=== PATIENT | male | born 1955 | race Caucasian/White ===

== ENCOUNTER 2020-02-16 15:17 | Inpatient (IN) | payer OTHER ==
--- NOTE | 2020-02-16 16:09 | ED ---
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 The patient rates the pain 8/10 in severity. Symptoms aggravated by nothing. Symptoms alleviated by nothing. Patient reports having a spinal fusion 1 month ago. He denies any fever, chills, nausea, or vomiting. He reports taking Hydrocodone. Medication list reviewed. Allergy list reviewed. Home Medications Medication Instructions Recorded Confirmed Type Gabapentin 1,500 mg PO BID 04/20/14 03/31/15 History Tamsulosin HCl 1 tab PO TID 04/20/14 03/31/15 History Meloxicam [Mobic] 1 tab PO BID 03/30/15 03/31/15 History Methocarbamol 750 mg PO BID 03/30/15 03/31/15 History Morphine Sulfate [Delphine] 2 tab PO QID 03/30/15 03/31/15 History Verapamil HCl [Calan Sr] 240 mg PO QPM 03/30/15 03/31/15 History - History Of Current Complaint Chief Complaint: EDRashSkinAbscess Stated Complaint: SURGICAL INCISION SITE ISSUE PER PT Time Seen by Provider: 02/16/20 16:01 Hx Obtained From: Patient Onset/Duration: Lasting Hours Severity: Moderate Pain Intensity: 8 Pain Scale Used: 0-10 Numeric Procedure Type: Spinal fusion - Allergies/Home Medications Allergies/Adverse Reactions: Allergies Allergy/AdvReac Type Severity Reaction Status Date / Time meperidine [From Demerol] Allergy Agitation Verified 02/16/20 15:44 MILK Allergy GI PROBLEMS Uncoded 02/16/20 15:44 WHEAT Allergy GI PROBLEMS Uncoded 02/16/20 15:44 Home Medications: Home Medications Docusate CAP* [Colace Cap*] 100 mg PO TID 02/16/20 [History Confirmed 02/16/20] Gabapentin CAP(*) [Neurontin 300 CAP(*)] 1,200 mg PO TID 02/16/20 [History Confirmed 02/16/20] HydroCODONE/Acetamin 10/325 NF [[place] 10/325 (NF)] 1 tab PO QID PRN 02/16/20 [ History Confirmed 02/16/20] Hydrochlorothiazide TAB* [Hydrodiuril TAB*] 25 mg PO DAILY 02/16/20 [History Confirmed 02/16/20] Lisinopril TAB* [Prinivil TAB*] 40 mg PO DAILY 02/16/20 [History Confirmed 02/15] Verapamil TAB* [Calan TAB*] 240 mg PO DAILY 02/16/20 [History Confirmed 02/16/20 ] PMH/Surg Hx/FS Hx/Imm Hx Endocrine/Hematology History: Denies: Hx Diabetes Cardiovascular History: Reports: Hx Hypertension Denies: Hx Pacemaker/ICD GI History: Reports: Hx Irritable Bowel History: Reports: Hx Kidney Stones - HX OF, Other Problems/Disorders - BENIGN PROSTATIC HYPERTROPHY Musculoskeletal History: Reports: Hx Arthritis Sensory History: Reports: Hx Cataracts, Hx Contacts or Glasses - GLASSES, Hx Hearing Aid - BILATERAL Opthamlomology History: Reports: Hx Cataracts, Hx Contacts or Glasses - GLASSES Neurological History: Denies: Hx Headaches Psychiatric History: Denies: Hx Panic Disorder - Surgical History Surgery Procedure, Year, and Place: 1973 L4/5 S1 LAMINECTOMY, [facility]. 1979 FAILED LUMBAR FUSION, [facility] 1990 L4/5 S1 FUSION WITH PLATES AND SCREW, [facility]. 2005 CERVICAL SPINE FUSION, [facility] Hx Anesthesia Reactions: No Infectious Disease History: No Infectious Disease History: Denies: Traveled Outside the [place] in Last 30 Days - Family History Known Family History: Positive: Cardiac Disease - [place]-father, Hypertension - Social History Alcohol Use: None Substance Use Type: Reports: Marijuana Substance Use Comment - Amount & Last Used: FOR BACK PAIN LAST TIME 03/30/15 MORNING WILL TRY NOT TO USE ANYMORE TODAY Hx Tobacco Use: No Smoking Status (MU): Never Smoked Tobacco Review of Systems Negative: Fever, Chills Negative: Vomiting, Nausea Positive: Other - Pain at surgical incision Positive: Other - Open surgical incision All Other Systems Reviewed And Are Negative: Yes Physical Exam - Summary Physical Exam Summary: Constitutional: Well-developed, Well-nourished, Alert. (-) Distressed Skin: Warm, surgical midline incision is dehisced, could see the soft tissue structures through the incision. HENT: Normocephalic; Atraumatic Eyes: Conjunctiva normal Neck: Musculoskeletal ROM normal neck. (-) JVD, (-) Stridor, (-) Tracheal deviation Cardio: Rhythm regular, rate normal, Heart sounds normal; Intact distal pulses; Radial pulses are 2+ and symmetric. (-) Murmur Pulmonary/Chest wall: Effort normal. (-) Respiratory distress, (-) Wheezes, (-) Rales Abd: Soft, (-) tenderness, (-) Distension, (-) Guarding, (-) Rebound Musculoskeletal: (-) Edema Lymph: (-) Cervical adenopathy Neuro: Alert, Oriented x3 Psych: Mood and affect Normal Triage Information Reviewed: Yes Vital Signs On Initial Exam: Initial Vitals Temp Pulse Resp BP Pulse Ox 97.2 F 94 18 155/90 97 02/16/20 15:18 02/16/20 15:18 02/16/20 15:18 02/16/20 15:18 02/16/20 15:18 Vital Signs Reviewed: Yes Procedures - Sedation Patient Received Moderate/Deep Sedation with Procedure: No Diagnostics - Vital Signs Vital Signs Temp Pulse Resp BP Pulse Ox 02/16/20 15:18 97.2 F 94 18 155/90 97 - Laboratory Result Diagrams: 02/16/20 16:27 02/16/20 16:27 Lab Statement: Any lab studies that have been ordered have been reviewed, and results considered in the medical decision making process. Re-Evaluation - Re-Evaluation First Eval Re-Evaluation Time: 16:10 Comment: Discussed with Dr. Prasad who recommends trying to coordinate with Dr. Lopez, but will send him a picture of the patient's wound. Course/Dx - Course Course Of Treatment: Patient is here with dehiscence of the surgical wound. Patient's neurosurgeon was contacted at [facility] thinks he needs to go to the operating room for washout. Neurosurgery here saw the patient and will take to the operating room for washout. Patient was given vancomycin empirically. Patient is admitted to the hospitalist service - Clinical Impression Provider Diagnoses: Post-operative complication, Wound dehiscence - Physician Notifications Discussed Care Of Patient With: Lalo Lopez Time Discussed With Above Provider: 16:20 Instructed by Provider To: Other - Dr. Lopez will admit the patient. [17:33 ] Dr. Tate accepts the patient for admission. Discharge ED - Sign-Out/Discharge Documenting (check all that apply): Patient Departure - Discharge Plan Condition: Stable Disposition: ADMITTED TO [facility] - Billing Disposition and Condition Condition: STABLE Disposition: [facility] - Attestation Statements Document Initiated by Suzanibrosario: Yes Documenting Scribe: Valerie Rodriguez Provider For Whom Lopez is Documenting (Include Credential): Selvin Martinez MD Scribe Attestation: Valerie Hackett, scribed for Selvin Martinez MD on 02/16/20 at 2113. Scribe Documentation Reviewed: Yes Provider Attestation: The documentation as recorded by the Valerie arnett accurately reflects the service I personally performed and the decisions made by me, Selvin Martinez MD Status of Scribe Document: Viewed
[2020-02-16 16:52] LABS: ABS Basophils 0.1 10^3/ul (0-0.2); ABS Eosinophils 0.3 10^3/ul (0-0.6); ABS Lymphocytes 1.1 10^3/ul (1.0-4.8); ABS Monocytes 0.5 10^3/ul (0-0.8); ABS Neutrophils 2.9 10^3/ul (1.5-7.7); Activated Partial Thrombo Time 31.1 seconds (26.0-38.0); Hematocrit 34 % (42-52); Hemoglobin 12.8 g/dL (14.0-18.0); Lymphocyte % 22.3 %; Mean Corpuscular HGB Conc 37 g/dL (31-36); Mean Corpuscular Hemoglobin 33 pg (27-31); Mean Corpuscular Volume 89 fL (80-94); Mean Platelet Volume 6.2 fL (7.4-10.4); Platelet Count 304 10^3/uL (150-450); Red Blood Count 3.87 10^6 /uL (4.18-5.48); Red Cell Distribution Width 12 % (10-15); White Blood Count 4.8 10^3/uL (3.5-10.8)
[2020-02-16 16:54] LABS: Albumin 3.7 g/dL (3.2-5.2); Albumin/Globulin Ratio 1.5 (1-3); BUN/Creatinine Ratio 11.2 (8-20); C Reactive Protein 10.34 mg/L (<8.01); Calcium 8.9 mg/dL (8.6-10.3); EGFR African American 92.9 (>60); EGFR Non-African American 76.8 (>60); Globulin 2.5 g/dL (2-4); Total Bilirubin 0.3 mg/dL (0.2-1.0); Total Protein 6.2 g/dL (6.4-8.9)
[2020-02-16] MEDS ORDERED: NS 0.9% 1000 ML** 1,000 ML IV ONE (17:16)
[2020-02-16] MEDS ORDERED: Vancomycin(*) 1,500 MG in NS 0.9% 250 ML* 250 ML IVPB ONE (17:16)
[2020-02-16] MEDS ORDERED: Morphine INJ* 2 MG/ML 1 ML SYRINGE (TWO MG - NEW SYRINGE VERSION) IV PRN (18:15)
[2020-02-16] MEDS ORDERED: Acetaminophen TAB* 325 MG PO PRN ×2 (18:15→21:24)
[2020-02-16] MEDS ORDERED: NS 0.9% 1000 ML** 1,000 ML IV SCH (18:15)
[2020-02-16] MEDS ORDERED: oxyCODONE/Acetamin 5/325 MG* TAB PO PRN (18:15)
[2020-02-16] MEDS ORDERED: Magnesium Hydroxide LIQ* 30 ML UDC PO PRN (18:19)
[2020-02-16] MEDS ORDERED: Docusate CAP* 100 MG PO PRN (18:19)
[2020-02-16] MEDS ORDERED: Senna TAB 8.6 mg* TAB PO PRN (18:19)
[2020-02-16] MEDS ORDERED: Polyethylene Glycol 3350* 17 GM PACKET PO PRN (18:19)
[2020-02-16] MEDS ORDERED: Bacitracin INJECTION* 50,000 UNITS ONE ×2 (18:45→19:38)
[2020-02-16] MEDS ORDERED: Vancomycin per Pharmacy* NOTE FOLLOW UP SCH (19:00)
[2020-02-16] MEDS ORDERED: Naloxone* 0.4 MG/ML 1 ML VIAL IV PRN (19:02)
[2020-02-16] MEDS ORDERED: Midazolam* 1 MG/ML 2 ML VIAL (2 MG) ONE (19:17)
[2020-02-16] MEDS ORDERED: fentaNYL* 50 MCG/ML 2 ML VIAL (100 MCG VIAL) ONE ×2 (19:17→20:44)
[2020-02-16] MEDS ORDERED: Rocuronium* 10 MG/ML VIAL ONE ×2 (19:31→20:21)
[2020-02-16] MEDS ORDERED: Dexamethasone IV* 4 MG/ML 1 ML (4 MG) ONE (19:40)
[2020-02-16] MEDS ORDERED: Propofol* 10 MG/ML 20 ML BTL ONE (19:40)
[2020-02-16] MEDS ORDERED: Etomidate* 2 MG/ML 10 ML VIAL ONE (19:40)
[2020-02-16] MEDS ORDERED: Lidocaine 2% PF * 5 ML VIAL ONE (19:40)
[2020-02-16] MEDS ORDERED: Succinylcholine* 20 MG/ML 10 ML VIAL ONE (19:40)
[2020-02-16] MEDS ORDERED: Sugammadex * 200 MG/2 ML VIAL IV PUSH ONE (20:29)
[2020-02-16] MEDS ORDERED: Ondansetron INJ* 2 MG/ML VIAL ONE (20:29)
--- NOTE | 2020-02-16 20:51 | HP ---
CC: LEW Gomez, [facility] [place]; Dr. Gabriel Mcdonnell at [facility]; Dr. Sean Tate* HISTORY AND PHYSICAL: DATE OF ADMISSION: 02/16/20 PRIMARY CARE PROVIDER: LEW Gomez, [place]. NEUROSURGEON: Dr. Gabriel Mcdonnell, [facility]. ATTENDING PHYSICIAN: Dr. Sean Tate* (dictated by LEW Luz ). CHIEF COMPLAINT: Wound dehiscence. HISTORY OF PRESENT ILLNESS: Mr. Sinha is a 64-year-old male with a past medical history of hypertension as well as cervical and lumbar radiculopathy with a history of multiple cervical and lumbar surgeries, most recently on 01/19 done at [facility] by Dr. Mcdonnell. He presented to the ER today after his noticed that his wound had dehisced. He reports that in the late morning he was reaching for an object and felt a "clunk" in his neck, after this he felt sudden relief. He went about his day without concern. It is important to note that he wears a MJ collar at all times except when sleeping. Later in the evening, his was helping him ice his neck, his collar was removed and she noticed that the wound had opened up; this prompted them to seek evaluation at the ER. The patient notes that the area has been clean and dry until it dehisced and then he reports clear bloody drainage from the incision site. He states that he does have intermittent pain in the area that is worse with standing or bending the neck. He does have chronic bilateral hand numbness since his surgery (previously in the left hand only) but notes that his paraesthesias have resolved. He complains of bilateral back and hip pain that are also chronic. In the ER, the patient received a full workup. CBC reveals mild anemia. CMP reveals hyponatremia, hypokalemia, and a mildly elevated CRP of 10.34. In the ER, he received 1 L of normal salinen 1 dose of vancomycin, and 1 Percocet 5/ 325. The hospitalist team was asked to evaluate the patient for admission. PAST MEDICAL HISTORY: 1. Hypertension. 2. Cervical radiculopathy. 3. Lumbar radiculopathy. PAST SURGICAL HISTORY: The patient reports that he has had 4 lumbar surgeries, 3 cervical surgeries. He also had his both toes fused. Left third digit traumatic amputation. HOME MEDICATIONS: 1. Docusate 100 mg p.o. t.i.d. 2. Gabapentin 1200 mg p.o. t.i.d. 3. Hydrochlorothiazide 25 mg p.o. daily. 4. Hydrocodone/acetaminophen 10/325 one tab p.o. 4 times a day p.r.n. 5. Lisinopril 40 mg p.o. daily. 6. Verapamil 240 mg p.o. daily. DRUG ALLERGIES: MEPERIDINE - agitation. MILK, WHEAT - GI upset. FAMILY HISTORY: Father had a history of VT. Sister of CVA at the age of 42. Mother had brain and liver cancer. Father also had lung cancer with a history of tobacco use. No family history of diabetes. SOCIAL HISTORY: The patient smokes cigars occasionally, approximately 6 per year. He does not use alcohol. He uses marijuana daily. He is retired/ disabled contractor. He is to his , Erendira and has 5 children. He lives with his and his 2 youngest children. He walks with a walker but has a power wheelchair for distance. In the event that he is unable to make his own medical decisions, he has appointed his , Erendira, to be his surrogate decision maker. REVIEW OF SYSTEMS: A 14-point review of systems has been performed and all the pertinent positives and negatives are in the HPI. All other systems are negative. PHYSICAL EXAMINATION GENERAL: Mr. Sinha is a well-developed, well-nourished, overweight, middle- aged white male who is lying on his right side in bed. He appears to be comfortable and in no acute distress. He is pleasant, cooperative and appropriate. HEENT: PERRL. EOMI. Visual courtney are grossly intact. Sclerae are without icterus or injection. Hearing is grossly intact. Oral mucous membranes are dry. The pharynx is clear without lesions. The tongue is at midline. Palate elevates symmetrically. NECK: At the posterior aspect of the cervical spine, there is an area of wound dehiscence that measures approximately 2 inches. This area is deep. There is visible musculature and bony structures in the area. There is no active drainage, although there is noted to be clear blood tinged serosanguineous fluid on the overlying dressing. There is no surrounding erythema or edematous area. PULMONARY: Symmetrical chest expansion without use of accessory muscles. Clear to auscultation bilaterally without rhonchi, wheeze, or rales. CARDIOVASCULAR: Regular rate and rhythm with S1, S2 present. No murmurs, rubs , clicks, or gallops. There is no JVD. There is no peripheral edema. ABDOMEN: Bowel sounds in all quadrants. Soft, nontender to palpation. MUSCULOSKELETAL: There is a distal left third digit amputation noted. The patient has left foot drop; otherwise full range of motion. NEURO: The patient is awake. He is alert and oriented x3. Cranial nerves II through XII are grossly intact. He can move all of his extremities. The patient has decreased sensation to bilateral hands distal to the wrists with left less than right. Office Assistant Receptionist strength is equal. Lower extremities with decreased sensation bilaterally from the knee distal. Left foot drop. Otherwise, strength is equal in the lower extremities. DIAGNOSTIC STUDIES/LAB DATA: 1. CBC: WBC 4.8, hemoglobin 12.8, hematocrit 34, MCV 89, platelets 304. 2. CMP: Sodium 129, potassium 3, chloride 95, carbon dioxide 27, BUN 11, creatinine 0.98, glucose 207. Total bili 0.30, AST 17, ALT 18, alk phos 95, CRP 10.34. ASSESSMENT AND PLAN: Mr. Sinha is a 64-year-old male with past medical history of hypertension as well as multiple surgical interventions for cervical and lumbar radiculopathy, the last of which being 01/19/[address] Mcdonnell in [place] wherein he had a 3 level cervical fusion, who presented to the ER today after noticing his surgical wound had opened. The patient will be admitted inpatient for: 1. Cervical surgical wound dehiscence. The patient's cervical surgical site has dehisced and is currently open. At this time, he has a dressing in place, this will remain in place. Dr. Lopez is aware of the patient and has planned for repair this evening. In the meantime, he will be placed on n.p.o. He has been started on IV fluids. He is planned for the OR tonight. At this time, he will be on bedrest but his activity level should be assessed postoperatively and addressed by Neurosurgery. He should also work with Physical Therapy and Occupational Therapy after surgical intervention. In the interim, we will continue pain management with the addition of bowel regimen. The patient will continue vancomycin and we will add on cefepime. 2. Hyponatremia. The patient is noted to have hyponatremia of 129. He has been given 1 L of normal saline in the ER. He will be continued on IV fluids at least overnight. His sodium will be rechecked in the morning to assess for need for further workup or management of his hyponatremia. 3. Hypokalemia. The patient has a potassium of 3.0 upon arrival. He will receive 3 runs of 20 IV potassium. His potassium level will be rechecked in the morning. It is likely that he will need further repletion, but in the setting of being n.p.o., he will receive IV potassium only at this time. 4. Hypertension. The patient's systolic blood pressure is 100 to 120s since arrival. We will continue the patient's home lisinopril and verapamil. HCTZ will be held at this time. 5. Chronic pain. The patient has chronic cervical and lumbar pain. He will continue his home gabapentin and hydrocodone/acetaminophen. For more severe pain, he will be offered morphine. 6. DVT prophylaxis: According to DVT Risk Assessment, the patient scores 3, placing him at high risk. At this time, we will forgo chemo prophylaxis in favor of SCDs in the setting of plan for surgical intervention tonight. 7. Code status: Full code. TIME SPENT: Approximately 60 minutes was spent on this admission, greater than half that time was spent [id number] with the patient and his obtaining history, performing physical, and reviewing the plan of care. The case has been discussed with my attending, Dr. Tate, who is in agreement with the plan of care. LEW CABRERA [id number]/[facility] #: [id number] JAKE
--- NOTE | 2020-02-16 21:17 | CONS ---
CONSULTATION NOTE: DATE OF CONSULT: 02/16/20 HISTORY OF PRESENT ILLNESS: The patient is a very pleasant 64-year-old gentleman who presented to the emergency room after noticing that his posterior cervical wound from recent surgery has been dehisced. The patient has history of spine surgeries. He had multiple lumbar spine surgeries and had multiple cervical spine surgeries. He had an anterior cervical procedure by Dr. Bryan several years ago and he also had anterior cervical procedure by Dr. Mcdonnell approximately 1 year ago with reported hardware failure with screw break. The patient recently underwent the posterior cervical decompression and fusion by Dr. Mcdonnell at [facility] approximately 3 weeks ago. The patient noticed this morning that his wound has opened up. The patient denies any fever. Denies any drainage from the wound. Denies any new weakness. On physical examination, he does have some baseline severe left lower extremity weakness and has difficulty ambulating. He uses a walker. The patient denies any new numbness. He does have numbness in his upper extremities in his hands that was present prior to surgery, that continues to persist postoperatively with also numbness in left lower extremity below his mid thigh level. The patient ambulates with significant limitation. He is using a walker. The patient denies any urinary or GI incontinence. The patient is retired. 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 He is and he has 5 children. He is accompanied today by his . PAST MEDICAL HISTORY: Hypertension, irritable bowel syndrome, kidney stones, BPH, arthritis, . PAST SURGICAL HISTORY: The patient has history of prior lumbar laminectomy in 1973. He had another fusion in 1979 at [facility]. He had another fusion in 1990 with plates and screws at [facility] and also had a cervical spine fusion in 2016 at [facility] as stated above. HOME MEDICATIONS: The patient is on: 1. Docusate. 2. Gabapentin. 3. Hydrocodone/acetaminophen. 4. Hydrochlorothiazide/lisinopril. 5. Verapamil. ALLERGIES: The patient is allergic to DEMEROL, MILK and WHEAT. SOCIAL HISTORY: Tobacco, negative. Alcohol, negative. Recreational drug use, marijuana. PHYSICAL EXAM: The patient is not in acute distress. He is awake, alert, and oriented x3. His pupils are equal and reactive. Cranial nerves II through XII are grossly intact. Motor 2/5 in the upper extremities; 4/5 in the right lower extremity; left hip flexion is 3-4/5, knee extension 4/5; right foot dorsiflexion and EHL 0-1/5, plantarflexion 3-4/5. This is at baseline as the patient reports. Sensory grossly intact to light touch except decreased sensation in bilateral upper extremities below the elbow, especially on the right the last 2 digits, on the left all digits. This is baseline as the patient reports. He had decreased sensation in the left lower extremity below the left mid thigh and also this is his baseline. Deep tendon reflexes +2 bilaterally in the upper extremities, +1 in the right lower extremity, trace in the left lower extremity. The patient has no clonus. Babinski plus-minus, right more than left. Carlos's positive right more than left. The patient has limited range of motion of the cervical spine as expected from his recent surgery, but he has no tenderness to palpation of the thoracic or lumbar spine. The patient has a wound dehiscence, which extends below dorsal fascia. ASSESSMENT: The patient is a very pleasant 64-year-old gentleman with history of recent posterior cervical arthrodesis by Dr. Mcdonnell, with wound dehiscence. PLAN: The patient at this point is doing quite well. Due to his recent wound dehiscence, I think that he is a candidate to recommend irrigation, debridement , and reexploration. We discussed different treatment options including surgical intervention versus placement of wound VAC. The patient at this point would like to attempt wound excised with primary closure. He understands risks associated with this approach. Dr. Mcdonnell kindly requested us to take care of the patient as at this time [facility] is overwhelmed with coronavirus breakthroughs. We discussed risks and benefits of the procedure with the expectations, limitations , and possible complications of the procedure with complications including, but not limited to bleeding, infection, risk of injury to adjacent structures, coma , paralysis, , need for additional procedures, anesthesia risks, stroke, blindness, cancer, instability, hardware failure, adjacent level disease, pseudoarthrosis, proximal/distal junctional kyphosis, spinal cord injury, loss of bladder or bowel control, paralysis, spinal fluid leak, injury to the trachea or esophagus, need for tracheostomy or gastrostomy, need for prolonged ICU stay, prolonged hospitalization, prolonged rehabilitation. The patient understands that his condition may not improve and in fact may get worse after surgery and that he may need to have additional procedures in the future. He also understands that intraoperative plan may be modified according to intraoperative findings and conditions and that the procedure may be abandoned or done in more than 1 stages. He understands that he may require additional procedures in the future and placement of additional drains or a wound VAC and prolonged followup with the clinic. He also understands that he may require additional procedures in the future. As of now, the patient will be started on IV vancomycin which is in agreement with the infectious disease team, who will kindly evaluate the patient in the morning. Dr. Tate from the hospitalist team has kindly agreed to admit the patient. We will plan for surgical intervention as soon as the OR schedule permits. Thank you for allowing us to participate in the care of this patient. Please do not hesitate to contact our office in case if you have any further questions or concerns regarding the care of this patient. [id number]/[facility] #: [id number] JAKE
[2020-02-16] MEDS ORDERED: oxyCODONE TAB* 5 MG TAB PO PRN (21:24)
[2020-02-16] MEDS ORDERED: Ondansetron INJ* 2 MG/ML VIAL IV PRN (21:24)
[2020-02-16] MEDS ORDERED: HYDROmorphone INJ1* 1 MG/ML SYRINGE ONE (21:50)
[2020-02-16] MEDS: HYDROmorphone INJ1* 1 MG/ML SYRINGE IV PRN ×2 (21:51→22:06)
--- NOTE | 2020-02-16 21:59 | OP ---
DATE OF OPERATION: 02/16/20 - ROOM #348 DATE OF : 53 SURGEON: Lalo Lopez MD. ANESTHESIA: General. PRE-OP DIAGNOSIS: Wound dehiscence, wound infection. POST-OP DIAGNOSIS: Wound dehiscence, wound infection. OPERATIVE PROCEDURE: The patient underwent posterior cervical wound irrigation and debridement. ESTIMATED BLOOD LOSS: 30 cc. COMPLICATIONS: None. INDICATIONS: The patient is a very pleasant 64-year-old gentleman with a history of multiple spine surgeries including anterior cervical surgical intervention by Dr. Bryan followed by anterior cervical approach by Dr. Prasad a few years ago. The patient recently underwent a posterior cervical decompression and fusion by Dr. Prasad 3 weeks ago. He came to the emergency room today with complaints of wound dehiscence. After discussing with Dr. Prasad and after explaining to the patient the indications and possible complications of the procedure with complications including, but not limited to, bleeding, infection, risk of injury to adjacent structures, coma, paralysis, , need for additional procedures, anesthesia risks, stroke, blindness, cancer, instability, hardware failure, adjacent level disease, pseudoarthrosis, spinal fluid leak, need for additional procedures, loss of bladder or bowel control, injury to the trachea or esophagus, need for tracheostomy or gastrostomy, paralysis, myelopathy, deep venous thrombosis, pulmonary embolism, need for prolonged ICU stay, prolonged hospitalization, prolonged rehabilitation, need for additional procedures in the future, and anesthesia risk, the patient was agreeable to proceed with surgery and informed consent was obtained. The same was discussed with the patient's . The patient and his understood that his condition may not improve and in fact may get worse after surgery, and that he may need to have additional procedures in the future. He also understood that operative plan may be modified according to intraoperative findings and conditions and that he may need to have additional procedures in the future, prolonged ICU stay, prolonged dependence on the ventilator, need for tracheostomy or gastrostomy, and prolonged rehabilitation. The patient understood that his procedure may be abandoned or done in more than 1 stages. DESCRIPTION OF PROCEDURE: The patient was brought to the operating room and was placed under general anesthesia by the anesthesia team. He was carefully positioned prone on the Sacha table and all bony prominences were meticulously padded. His skin was prepped and draped in the standard fashion. After appropriate surgical pause and patient identification, the previous incision was identified. It was completely dehiscent and the spinous process and the spinal hardware were visible. The incision was then reopened with the use of Bovie cautery and self-retaining retractors. The previous hardware was identified as well as the thecal sac. Wounds from the deep part of the incision were sent for cultures as well as the membranes that were investing in the patient's hardware. After copious irrigation, pulse lavage was used to irrigate the lateral margins of the incision paying attention not to perform any forced irrigation on the thecal sac. Then after copious irrigation and confirmation of meticulous hemostasis and meticulous inspection, the self- retraining retractors were removed from the field and the incision was closed by layers over two Seth drains placed in the epidural space. These were done through separate stab wound incisions. The dorsal fascia was gently approximated with interrupted #1 Prolene sutures. Subcutaneous tissue was reapproximated with inverted interrupted #1 and 2-0 Vicryl sutures while the skin was approximated with interrupted vertical mattress and running #1 Prolene sutures. At the end of the procedure, all counts were reported to be correct. The patient remained hemodynamically stable throughout the case. He was then turned supine and was extubated and was transferred to Recovery in excellent condition. [id number]/[facility] #: [id number] JAKE
[2020-02-16] MEDS ORDERED: Lactated Ringers 1000 ML Bag* 1,000 ML IV SCH (22:00)
[2020-02-17] MEDS: Gabapentin CAP(*) 300 MG PO SCH ×4 (00:05→20:43)
[2020-02-17] MEDS: oxyCODONE TAB* 5 MG TAB PO PRN ×5 (00:11→23:17)
[2020-02-17] MEDS: Cefepime 2 GM in Dextrose(*) 2 GM/50 ML BAG IV SCH ×3 (00:19→23:53)
[2020-02-17] MEDS: KCL 20 MEQ/100 ML IVPREMIX* 20 MEQ/100 ML BAG IV SCH ×4 (00:53→03:31)
[2020-02-17] MEDS: Hydrocodone/Acetamin 10/325 MG 1 TAB PO PRN ×3 (02:56→20:44)
[2020-02-17] MEDS ORDERED: POTASSIUM CHLORIDE IVPB ONE (04:00)
[2020-02-17] MEDS ORDERED: D5W IVPB ONE (04:00)
[2020-02-17 04:25] LABS: ABS Lymphocytes 0.6 10^3/ul (1.0-4.8); ABS Monocytes 0.1 10^3/ul (0-0.8); Hematocrit 35 % (42-52); Hemoglobin 12.4 g/dL (14.0-18.0); Lymphocyte % 8.4 %; Mean Corpuscular HGB Conc 35 g/dL (31-36); Mean Corpuscular Hemoglobin 31 pg (27-31); Mean Corpuscular Volume 89 fL (80-94); Mean Platelet Volume 6.3 fL (7.4-10.4); Platelet Count 287 10^3/uL (150-450); Red Blood Count 3.95 10^6 /uL (4.18-5.48); Red Cell Distribution Width 13 % (10-15); White Blood Count 6.7 10^3/uL (3.5-10.8)
[2020-02-17 04:39] LABS: BUN/Creatinine Ratio 13.1 (8-20); Calcium 8.9 mg/dL (8.6-10.3); EGFR Non-African American 91.7 (>60); Potassium 3.8 mmol/L (3.5-5.0)
[2020-02-17] MEDS: Vancomycin(*) 1,000 MG in NS 0.9% 250 ML* 250 ML IV SCH ×2 (06:51→17:56)
[2020-02-17] MEDS: Lisinopril TAB* 10 MG PO SCH (08:21)
[2020-02-17] MEDS: Verapamil TAB* 120 MG PO SCH (08:21)
--- NOTE | 2020-02-17 11:44 | CONS ---
CONSULTATION REPORT: DATE OF CONSULT: 02/17/20 PRIMARY CARE PROVIDER: LEW Gomez PROVIDER REQUESTING CONSULTATION: Dr. Lalo Lopez. CONSULTING SERVICE: Infectious Disease. PROVIDER: Stacey Mullins NP. ATTENDING PROVIDER: Dr. Patricio Puentes.* (DICTATED BY STACEY MULLINS NP) REASON FOR CONSULT: Cervical spine surgical incision dehiscence. IMPRESSION: Cervical spine incision wound dehiscence. This occurred 1 month post procedure for a posterior cervical decompression performed in [place]. The patient has no leukocytosis. He is afebrile. CRP is slightly elevated at 10.34. Initial Gram stains of the tissue with no neutrophils, no organisms seen. Tissue culture is pending. Deep neck wound culture with 1+ nucleated cells, 1+ neutrophils. No organisms seen. Final wound culture is pending. The patient is currently on cefepime and vancomycin. RECOMMENDATIONS/PLAN: Recommend continuing cefepime and vanco while we await culture results. Further recommendations will be based on the patient's clinical course, lab results and culture results. HISTORY OF PRESENT ILLNESS: Mr. Sinha is a 64-year-old male with a past medical history significant for hypertension, cervical radiculopathy and lumbar radiculopathy, who underwent a posterior cervical decompression and fusion by Dr. Mcdonnell at [facility] 1 month ago. The patient states that he had been doing well and had bent down to unplug a phone metal expediter, when he felt a "pop " in his neck. He laid down to rest. When he got up, he had asked his to ice the area and he removed the brace, so she could apply the ice. Upon removing the brace, his noted that the wound had opened up approximately 6 inches. The patient denied any fevers, chills, nausea, vomiting, diarrhea. Denies any new weakness or drainage from the wound. At baseline, the patient has left lower extremity weakness and he ambulates with a walker. Due to the wound opening up, he presented to the emergency room for evaluation. While in the emergency room he was seen by Dr. Lopez. He was afebrile. Labs with no leukocytosis, CRP 10.34. He was taken to operating room by Dr. Lopez for posterior cervical wound irrigation and debridement. The patient continues to deny fever, chills, pain in the neck. He is in a Edmunds J collar. He reports a decreased appetite. He has been on cefepime and vancomycin. PAST MEDICAL HISTORY: 1. Hypertension. 2. Cervical radiculopathy. 3. Lumbar radiculopathy. PAST SURGICAL HISTORY: 1. Status post 4 lumbar surgeries. 2. Status post 3 C-spine surgeries. 3. Status post foot surgery. 4. 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 MEDICATIONS: Home Medications: 1. Gabapentin 1200 mg by mouth 3 times daily. 2. Verapamil 240 mg by mouth daily. 3. Colace 100 mg by mouth 3 times daily. 4. Lisinopril 40 mg by mouth daily. 5. Hydrochlorothiazide 25 mg by mouth daily. 6. Loyall 10/325 one tablet by mouth 4 times daily as needed for pain. Hospital Medications: 1. Acetaminophen 650 mg by mouth every 4 hours. 2. Cefepime 2 g IV every 12 hours. 3. Colace 100 mg by mouth twice daily as needed for constipation. 4. Gabapentin 1200 mg by mouth 3 times daily. 5. Loyall 10/325 one tablet by mouth 4 times daily as needed for pain. 6. Lactated Ringers 50 mL intravenously an hour. 7. Lisinopril 40 mg by mouth daily. 8. Milk of magnesia 30 mg by mouth twice daily as needed for constipation. 9. Morphine sulfate 2 mg IV every 4 hours as needed for pain. 10. Zofran 4 mg IV every 6 hours as needed for nausea. 11. Oxycodone 5 to 10 mg by mouth every 4 hours as needed for pain. 12. MiraLAX 17 g by mouth daily as needed for constipation. 13. Senokot 8.6 mg by mouth at bedtime as needed for constipation. 14. Vancomycin 1000 mg IV every 12 hours. 15. Verapamil 240 mg by mouth daily. ALLERGIES: DEMEROL caused agitation, MILK and WHEAT. FAMILY HISTORY: Denies family history of recurrent or resistant infections. Father with a history of [place]. Sister passed at age 42 secondary to a CVA. No family history of diabetes. Mother with a history of brain and liver cancer. Father with a history of lung cancer in the setting of tobacco use. SOCIAL HISTORY: Denies alcohol. Occasionally smokes cigar, approximately 6 cigars yearly. Uses marijuana daily. REVIEW OF SYSTEMS: I performed a 10-point review of systems. All the pertinent positives and negatives are mentioned in the history of present illness. The remaining review of systems are negative. PHYSICAL EXAM: Vital Signs: Temperature 98.4, heart rate 90, respiratory rate 18, O2 sat 98% on room air, blood pressure 140/78. General Appearance: Alert, appears to be in no acute distress, sitting up in bed. Head: Normocephalic, atraumatic. ENT: Extraocular movements are intact. No subconjunctival hemorrhage. Moist mucous membranes. Neck in a Edmunds J collar. Neurological: Alert and oriented. Cranial nerves II through XII are grossly intact. He moves all extremities. Cardiovascular: Regular rate and rhythm. S1 and S2 present. No murmurs, rubs or gallops heard. Respiratory: Lungs are clear to auscultation bilaterally. No accessory muscle use. Abdomen: Bowel sounds present. Abdomen is soft, nontender, nondistended. Extremities: No lower extremity edema. DP/PT pulses 2+ and symmetric. Musculoskeletal: No clubbing or cyanosis noted. He exhibits good strength in all extremities. No tenderness with palpation of the thoracic or lumbar spine or back. Psychological: Calm and cooperative. Skin: No rashes or abnormalities seen. He has a surgical dressing to his posterior cervical spine that has dressing with a small amount of serosanguineous drainage with 2 STEFANIE drains draining scant serosanguineous drainage. DIAGNOSTIC STUDIES/LAB DATA: Sodium 132, potassium 3.8, chloride 98, CO2 26, BUN 11, creatinine 0.84, glucose 181. White blood cell count 6.7, hemoglobin 12.4, hematocrit 35, platelet count 287. Gram stains from surgery with no organisms seen. Final cultures are pending. Please see impression and recommendations outlined above. Recommendations has been discussed with Dr. Tabatha Trinidad. Thank you for asking us to see Mr. Sinha in consultation. The case has been discussed with my attending, Dr. Patricio Puentes, who agrees with the plan of care. Reviewed by STACEY MULLINS, FROYLAN-C 02/21/20 1946 [id number]/[facility] #: [id number] JAKE
--- NOTE | 2020-02-17 12:40 | PN ---
Subjective Date of Service: 02/17/20 Interval History: Mr. Sinha feels good this morning. He has no pain. Went to the OR last evening with Dr. Lopez for wound closure. He has no nausea, has been afebrile. Objective Active Medications: Acetaminophen (Tylenol Tab*) 650 mg PO Q4H PRN PRN Reason: MILD PAIN or TEMP > 100.4 Hydrocodone Bitart/Acetaminophen (Woodrow 10/325 (Nf)) 1 tab PO QID PRN PRN Reason: PAIN - MODERATE Last Admin: 02/17/20 02:56 Dose: 1 tab Docusate Sodium (Colace Cap*) 100 mg PO BID PRN PRN Reason: CONSTIPATION Gabapentin (Neurontin Cap(*)) 1,200 mg PO TID [facility] Last Admin: 02/17/20 08:20 Dose: 1,200 mg Cefepime HCl (Maxipime 2 Gm In Dextrose Duplex (*)) 2 gm in 50 mls @ 100 mls/ hr IV Q12H [facility] Last Admin: 02/17/20 12:01 Dose: 100 mls/hr Lactated Ringer's (Lactated Ringers 1000 Ml Bag*) 1,000 mls @ 50 mls/hr IV .per rate [facility] Last Admin: 02/17/20 00:20 Dose: 50 mls/hr Vancomycin HCl 1,000 mg/ (Sodium Chloride) 250 mls @ 166.667 mls/hr IV Q12H [facility] Last Admin: 02/17/20 06:51 Dose: 166.667 mls/hr Lisinopril (Prinivil Tab*) 40 mg PO DAILY [facility] Last Admin: 02/17/20 08:21 Dose: 40 mg Magnesium Hydroxide (Milk Of Magnesia Liq*) 30 ml PO BID PRN PRN Reason: CONSTIPATION Morphine Sulfate (Morphine Inj (Syringe))*) 2 mg IV Q4H PRN PRN Reason: PAIN - SEVERE Ondansetron HCl (Zofran Inj*) 4 mg IV Q6H PRN PRN Reason: NAUSEA/VOMITING Oxycodone HCl (Roxycodone Tab*) 5 mg PO Q4H PRN PRN Reason: moderate pain Oxycodone HCl (Roxycodone Tab*) 10 mg PO Q4H PRN PRN Reason: PAIN - SEVERE Last Admin: 02/17/20 11:24 Dose: 10 mg Pharmacy Consult (Vancomycin Per Pharmacy*) 1 note FOLLOW UP .VANC PER PHARMACY THONY; Protocol Pharmacy Profile Note (Vancomycin Trough Check) 1 note FOLLOW UP 529 ONE Stop: 02/18/20 05:31 Polyethylene Glycol/Electrolytes (Miralax (17 Gm Dose Devin)) 17 gm PO DAILY PRN PRN Reason: CONSTIPATION Senna (Senokot 8.6 Mg Tab*) 1 tab PO BEDTIME PRN PRN Reason: CONSTIPATION Verapamil HCl (Calan Tab*) 240 mg PO DAILY [facility] Last Admin: 02/17/20 08:21 Dose: 240 mg Vital Signs - 8 hr 02/17/20 02/17/20 02/17/20 05:09 05:58 07:10 Temperature 97.9 F Pulse Rate 84 Respiratory 16 16 20 Rate Blood Pressure 157/86 (mmHg) O2 Sat by Pulse 99 Oximetry 02/17/20 02/17/20 02/17/20 07:18 08:00 08:20 Temperature 98.4 F Pulse Rate 90 Respiratory 20 18 20 Rate Blood Pressure 140/78 (mmHg) O2 Sat by Pulse 99 98 Oximetry 02/17/20 02/17/20 02/17/20 11:24 11:25 11:57 Temperature 97.9 F Pulse Rate 81 Respiratory 16 18 20 Rate Blood Pressure 142/81 (mmHg) O2 Sat by Pulse 99 Oximetry Oxygen Devices in Use Now: None Appearance: alert, well appearing Eyes: No Scleral Icterus Ears/Nose/Mouth/Throat: NL Teeth, Lips, Gums Neck: - - inupiat j-collar in place; incision is dressed with 3 STEFANIE drains with minimal bloody drainage, no surrounding erythema Respiratory: Symmetrical Chest Expansion and Respiratory Effort, Clear to Auscultation Cardiovascular: NL Sounds; No Murmurs; No JVD, RRR Abdominal: NL Sounds; No Tenderness; No Distention Lymphatic: No Cervical Adenopathy Extremities: No Edema Skin: No Rash or Ulcers Neurological: - - strength 5/5 in all extremities Result Diagrams: 02/17/20 03:52 02/17/20 03:52 Microbiology and Other Data: Microbiology 02/16/20 20:02 Wound Gram Stain - Final Tissue 02/16/20 19:56 Gram Stain - Final Wound Assess/Plan/Problems-Billing Assessment: This is a 64 year old man with history of a cervical fusion on 01/19/2020 at [facility] who had had an uncomplicated post-op course until yesterday (02/15) after he felt a sudden pull and was found to have wound dehiscence. - Patient Problems (1) Wound dehiscence Current Visit: Yes Status: Acute Code(s): T81.30XA - DISRUPTION OF WOUND, UNSPECIFIED, INITIAL ENCOUNTER SNOMED Code(s): 782980300 Comment: POD #1 from repair pain is controlled cause of dehiscense is unclear, as there was minimal trauma to the area--no clear infection, however will discuss findings with Dr. Lopez (2) Wound infection Current Visit: Yes Status: Acute Code(s): T14.8XXA - OTHER INJURY OF UNSPECIFIED BODY REGION, INITIAL ENCOUNTER; L08.9 - LOCAL INFECTION OF THE SKIN AND SUBCUTANEOUS TISSUE, UNSP SNOMED Code(s): 36962817 Comment: currently on cefepime and vanc (day 2) empirically, will follow up OR cultures ID consulted (3) HTN (hypertension) Current Visit: Yes Status: Acute Code(s): I10 - ESSENTIAL (PRIMARY) HYPERTENSION SNOMED Code(s): 48670108 Comment: continue lisinopril and verapamil (4) Chronic pain Current Visit: Yes Status: Acute Code(s): G89.29 - OTHER CHRONIC PAIN SNOMED Code(s): 20669883 Comment: on home pain regimen
[2020-02-18] MEDS: Hydrocodone/Acetamin 10/325 MG 1 TAB PO PRN ×3 (04:04→20:17)
[2020-02-18] MEDS ORDERED: Vancomycin Trough Check NOTE FOLLOW UP ONE (05:30)
[2020-02-18 05:54] LABS: ABS Lymphocytes 1.3 10^3/ul (1.0-4.8); ABS Monocytes 0.4 10^3/ul (0-0.8); ABS Neutrophils 6.6 10^3/ul (1.5-7.7); Eosinophil % 0.1 %; Hematocrit 35 % (42-52); Lymphocyte % 15.4 %; Mean Corpuscular HGB Conc 34 g/dL (31-36); Mean Corpuscular Hemoglobin 31 pg (27-31); Mean Corpuscular Volume 90 fL (80-94); Mean Platelet Volume 6.2 fL (7.4-10.4); Platelet Count 283 10^3/uL (150-450); Red Blood Count 3.88 10^6 /uL (4.18-5.48); Red Cell Distribution Width 13 % (10-15); White Blood Count 8.4 10^3/uL (3.5-10.8)
[2020-02-18 06:08] LABS: BUN/Creatinine Ratio 18.4 (8-20); Calcium 8.7 mg/dL (8.6-10.3); EGFR African American 124.6 (>60); EGFR Non-African American 102.9 (>60); Potassium 3.9 mmol/L (3.5-5.0)
[2020-02-18 06:18] LABS: Vancomycin Trough 10.3 mcg/mL
[2020-02-18] MEDS: Vancomycin(*) 1,000 MG in NS 0.9% 250 ML* 250 ML IV SCH (06:37)
[2020-02-18] MEDS: oxyCODONE TAB* 5 MG TAB PO PRN ×4 (07:59→21:33)
[2020-02-18] MEDS: Gabapentin CAP(*) 300 MG PO SCH ×3 (09:41→20:17)
[2020-02-18] MEDS: Lisinopril TAB* 10 MG PO SCH (09:42)
[2020-02-18] MEDS: Verapamil TAB* 120 MG PO SCH (09:42)
[2020-02-18] MEDS: Cefepime 2 GM in Dextrose(*) 2 GM/50 ML BAG IV SCH (11:38)
[2020-02-18] MEDS: Vancomycin(*) 1,250 MG in NS 0.9% 250 ML* 250 ML IV SCH (17:33)
[2020-02-19] MEDS: Cefepime 2 GM in Dextrose(*) 2 GM/50 ML BAG IV SCH (00:32)
[2020-02-19] MEDS: Hydrocodone/Acetamin 10/325 MG 1 TAB PO PRN ×4 (01:24→17:09)
[2020-02-19] MEDS: oxyCODONE TAB* 5 MG TAB PO PRN ×4 (04:16→18:29)
[2020-02-19] MEDS: Vancomycin(*) 1,250 MG in NS 0.9% 250 ML* 250 ML IV SCH ×2 (06:00→17:12)
--- NOTE | 2020-02-19 08:07 | PN ---
Hospitalist Progress Note Date of Service: 02/19/20 Mr. Sinha seen and examined this morning. No complaints. Drains removed last night. Plan for today: OOB Resume hctz Picc placement Await final culture data from OR Final ID recs for DC abx CM to arrange abx through [facility]
[2020-02-19] MEDS ORDERED: Hydrochlorothiazide TAB* 25 MG PO SCH (09:00)
[2020-02-19] MEDS: Gabapentin CAP(*) 300 MG PO SCH ×2 (09:30→14:25)
[2020-02-19] MEDS: Verapamil TAB* 120 MG PO SCH (09:31)
[2020-02-19] MEDS: Lisinopril TAB* 10 MG PO SCH (09:32)
--- NOTE | 2020-02-19 10:36 | PN ---
Progress Note - Progress Note Date of Service: 02/19/20 SOAP: Subjective: CC: Cervical spine wound dehiscence. HPI: Mr. Sinha is a 64 yo male with PMH significant for HTN, cervical and lumbar radiculopathy; who presented to the hospital with a surgical wound dehiscence of the posterior neck. Denies fever, chills, nausea, vomiting, or diarrhea. Reports controlled pain in the neck. He is anxious to get home. Objective: Vital Signs - 8 hr 02/19/20 02/19/20 02/19/20 08:30 09:30 09:31 Temperature 97.7 F Pulse Rate 69 Respiratory 16 20 20 Rate Blood Pressure 157/77 (mmHg) O2 Sat by Pulse 97 Oximetry Physical Exam: General: NAD, sitting up in bed HEENT: Moist MM Cardiovascular: Heart rate regular Respiratory: Lung sounds clear Abdominal: Bowel sounds present; ABD soft, non tender and non distended MSK: BRIDGES Skin: No rash Laboratory Last Values WBC 8.4 10^3/uL (3.5-10.8) 02/18/20 05:27 RBC 3.88 10^6 /uL (4.18-5.48) L 02/18/20 05:27 Hgb 12.0 g/dL (14.0-18.0) L 02/18/20 05:27 Hct 35 % (42-52) L 02/18/20 05:27 MCV 90 fL (80-94) 02/18/20 05:27 MCH 31 pg (27-31) 02/18/20 05:27 MCHC 34 g/dL (31-36) 02/18/20 05:27 RDW 13 % (10-15) 02/18/20 05:27 Plt Count 283 10^3/uL (150-450) 02/18/20 05:27 MPV 6.2 fL (7.4-10.4) L 02/18/20 05:27 Neut % (Auto) 79.0 % 02/18/20 05:27 Lymph % (Auto) 15.4 % 02/18/20 05:27 [place] % (Auto) 5.2 % 02/18/20 05:27 Eos % (Auto) 0.1 % 02/18/20 05:27 Baso % (Auto) 0.3 % 02/18/20 05:27 Absolute Neuts (auto) 6.6 10^3/ul (1.5-7.7) 02/18/20 05:27 Absolute Lymphs (auto) 1.3 10^3/ul (1.0-4.8) 02/18/20 05:27 Absolute Monos (auto) 0.4 10^3/ul (0-0.8) 02/18/20 05:27 Absolute Eos (auto) 0.0 10^3/ul (0-0.6) 02/18/20 05:27 Absolute Basos (auto) 0.0 10^3/ul (0-0.2) 02/18/20 05:27 Absolute Nucleated RBC 0.0 10^3/ul 02/18/20 05:27 Nucleated RBC % 0.0 02/18/20 05:27 INR (Anticoag Therapy) 1.00 (0.82-1.09) 02/16/20 16:27 APTT 31.1 seconds (26.0-38.0) 02/16/20 16:27 Sodium 137 mmol/L (135-145) 02/18/20 05:27 Potassium 3.9 mmol/L (3.5-5.0) 02/18/20 05:27 Chloride 103 mmol/L (101-111) 02/18/20 05:27 Carbon Dioxide 28 mmol/L (22-32) 02/18/20 05:27 Anion Gap 6 mmol/L (2-11) 02/18/20 05:27 BUN 14 mg/dL (6-24) 02/18/20 05:27 Creatinine 0.76 mg/dL (0.67-1.17) 02/18/20 05:27 Est GFR ( Amer) 124.6 (>60) 02/18/20 05:27 Est GFR (Non-Af Amer) 102.9 (>60) 02/18/20 05:27 BUN/Creatinine Ratio 18.4 (8-20) 02/18/20 05:27 Glucose 119 mg/dL (70-100) H 02/18/20 05:27 Calcium 8.7 mg/dL (8.6-10.3) 02/18/20 05:27 Total Bilirubin 0.30 mg/dL (0.2-1.0) 02/16/20 16:27 AST 17 U/L (13-39) 02/16/20 16:27 ALT 18 U/L (7-52) 02/16/20 16:27 Alkaline Phosphatase 95 U/L (34-104) 02/16/20 16:27 C-Reactive Protein 10.34 mg/L (<8.01) H 02/16/20 16:27 Total Protein 6.2 g/dL (6.4-8.9) L 02/16/20 16:27 Albumin 3.7 g/dL (3.2-5.2) 02/16/20 16:27 Globulin 2.5 g/dL (2-4) 02/16/20 16:27 Albumin/Globulin Ratio 1.5 (1-3) 02/16/20 16:27 Vancomycin Trough 10.3 mcg/mL 02/18/20 05:27 Microbiology 02/16/20 20:02 Wound Gram Stain - Final Tissue Tissue Culture - Preliminary Staphylococcus Hominis Staphylococcus Epidermidis 02/16/20 19:56 Anaerobic Culture - Preliminary Wound Gram Stain - Final Wound Culture - Preliminary Staphylococcus Hominis Staphylococcus Epidermidis 02/16/20 16:37 Aerobic Blood Culture - Preliminary Blood Venous No Growth Day 2 Anaerobic Blood Culture - Preliminary No Growth Day 2 02/16/20 16:27 Aerobic Blood Culture - Preliminary Blood Venous No Growth Day 2 Anaerobic Blood Culture - Preliminary No Growth Day 2 Assessment: 1. Cervical spine incision wound dehiscence. 1 month postop posterior cervical decompression. There is hardware present in the C spine. S/P washout and closure , per Dr. Lopez noted to have purulent material in wound base. Deep tissue and wound culture with staph hominis and staph epi. No leukocytosis and afebrile. Blood cultures with no growth. Plan: Discontinue cefepime. Continue Vancomycin, trough goal 15-20. Day . Will add Rifampin outpatient and plan on an extended course of oral ABX after he completed IV ABX. Weekly labs: CBC, CMP, CRP, and vanco trough. Followup with ID outpatient. 25 minutes floor time: >50 % spent with the patient discussing recommendations for an extended course of IV ABX, followup, and when to call the office (rash, diarrhea, fevers, other concerns)
--- NOTE | 2020-02-19 15:43 | PN ---
Subjective Date of Service: 02/19/20 Interval History: Mr. Sinha feels good today, is anxious to go home. No pain. Afebrile. Objective Active Medications: Acetaminophen (Tylenol Tab*) 650 mg PO Q4H PRN PRN Reason: MILD PAIN or TEMP > 100.4 Hydrocodone Bitart/Acetaminophen ([place] 10/325 (Nf)) 1 tab PO QID PRN PRN Reason: PAIN - MODERATE Last Admin: 02/19/20 13:00 Dose: 1 tab Docusate Sodium (Colace Cap*) 100 mg PO BID PRN PRN Reason: CONSTIPATION Last Admin: 02/17/20 20:43 Dose: 100 mg Gabapentin (Neurontin Cap(*)) 1,200 mg PO TID [facility] Last Admin: 02/19/20 14:25 Dose: 1,200 mg Heparin Sodium (Porcine) (Heparin Flush Picc/Ml/Cvc(*)) 1 - 3 ml FLUSH 0600, 1800 [facility]; Protocol Hydrochlorothiazide (Hydrodiuril Tab*) 25 mg PO DAILY [facility] Last Admin: 02/19/20 09:32 Dose: 25 mg Vancomycin HCl 1,250 mg/ (Sodium Chloride) 250 mls @ 166.667 mls/hr IV 0600, 1800 [facility] Last Admin: 02/19/20 06:00 Dose: 166.667 mls/hr Lisinopril (Prinivil Tab*) 40 mg PO DAILY [facility] Last Admin: 02/19/20 09:32 Dose: 40 mg Magnesium Hydroxide (Milk Of Magnesia Liq*) 30 ml PO BID PRN PRN Reason: CONSTIPATION Morphine Sulfate (Morphine Inj (Syringe))*) 2 mg IV Q4H PRN PRN Reason: PAIN - SEVERE Ondansetron HCl (Zofran Inj*) 4 mg IV Q6H PRN PRN Reason: NAUSEA/VOMITING Oxycodone HCl (Roxycodone Tab*) 5 mg PO Q4H PRN PRN Reason: moderate pain Oxycodone HCl (Roxycodone Tab*) 10 mg PO Q4H PRN PRN Reason: PAIN - SEVERE Last Admin: 02/19/20 14:26 Dose: 10 mg Pharmacy Consult (Vancomycin Per Pharmacy*) 1 note FOLLOW UP .VANC PER PHARMACY [facility]; Protocol Pharmacy Profile Note (Vancomycin Trough Check) 1 note FOLLOW UP 0600 ONE Stop: 02/20/20 06:01 Polyethylene Glycol/Electrolytes (Miralax (17 Gm Dose Devin)) 17 gm PO DAILY PRN PRN Reason: CONSTIPATION Senna (Senokot 8.6 Mg Tab*) 1 tab PO BEDTIME PRN PRN Reason: CONSTIPATION Last Admin: 02/17/20 20:43 Dose: 1 tab Verapamil HCl (Calan Tab*) 240 mg PO DAILY [facility] Last Admin: 02/19/20 09:31 Dose: 240 mg Vital Signs - 8 hr 02/19/20 02/19/20 02/19/20 08:25 08:30 09:30 Temperature 97.7 F Pulse Rate 69 Respiratory 16 16 20 Rate Blood Pressure 157/77 (mmHg) O2 Sat by Pulse 97 Oximetry 02/19/20 02/19/20 02/19/20 09:31 11:15 13:00 Temperature Pulse Rate Respiratory 20 18 18 Rate Blood Pressure (mmHg) O2 Sat by Pulse Oximetry 02/19/20 02/19/20 14:25 14:26 Temperature Pulse Rate Respiratory 20 20 Rate Blood Pressure (mmHg) O2 Sat by Pulse Oximetry Oxygen Devices in Use Now: None Appearance: alert, well appearing, [place] j in place Eyes: No Scleral Icterus Ears/Nose/Mouth/Throat: NL Teeth, Lips, Gums Neck: - - dressing is clean without drainage or surrounding erythema Respiratory: Symmetrical Chest Expansion and Respiratory Effort, Clear to Auscultation Cardiovascular: NL Sounds; No Murmurs; No JVD, RRR Abdominal: NL Sounds; No Tenderness; No Distention Lymphatic: No Cervical Adenopathy Extremities: No Edema Skin: No Rash or Ulcers Neurological: - - upper extremity strength 5/5, LLE 3/5, RLE 5/5 Result Diagrams: 02/18/20 05:27 02/18/20 05:27 Microbiology and Other Data: Microbiology 02/16/20 20:02 Wound Gram Stain - Final Tissue 02/16/20 19:56 Gram Stain - Final Wound Assess/Plan/Problems-Billing Assessment: This is a 64 year old man with history of a cervical fusion on 01/19/2020 at [facility] who had had an uncomplicated post-op course until 02/15 when he felt a sudden pull and was found to have wound dehiscence. - Patient Problems (1) Wound dehiscence Current Visit: Yes Status: Acute Code(s): T81.30XA - DISRUPTION OF WOUND, UNSPECIFIED, INITIAL ENCOUNTER SNOMED Code(s): 518903040 Comment: POD #3 from repair pain is controlled suspecting infection was the cause, as there was minimal trauma (2) Wound infection Current Visit: Yes Status: Acute Code(s): T14.8XXA - OTHER INJURY OF UNSPECIFIED BODY REGION, INITIAL ENCOUNTER; L08.9 - LOCAL INFECTION OF THE SKIN AND SUBCUTANEOUS TISSUE, UNSP SNOMED Code(s): 17499101 Comment: currently on cefepime and vanc empirically; cultures with "normal angela," verbal report of staph will DC cefepime plan for 8 weeks vanc per ID (3) HTN (hypertension) Current Visit: Yes Status: Acute Code(s): I10 - ESSENTIAL (PRIMARY) HYPERTENSION SNOMED Code(s): 14469922 Comment: continue lisinopril and verapamil add back hctz today (4) Chronic pain Current Visit: Yes Status: Acute Code(s): G89.29 - OTHER CHRONIC PAIN SNOMED Code(s): 88148088 Comment: on home pain regimen
[2020-02-19 15:46] VITALS: BP 144/76
--- NOTE | 2020-02-19 16:46 | PN ---
Progress Note - Progress Note Date of Service: 02/18/20 SOAP: Subjective: []Delayed entry. Patient was seen yesterday at the date of note. No events ON. Tolerates PO well. Ambulates, Voids. Pain well controlled. Awaiting PICC line. Objective: []VSS Wound s,c,d. Dressing was changed Seth drains output was noted. Drains were removed. Catheters appeared to be intact. No complications. Patient tolerated procedure well. AAOx3 WHIT, CN II-XII grossly intact Motor 4/5 UEs 4-/5 RLE, 3-4/5 LHF, 4-/5 LKE, 0-1/5 L FDF, EHL Sensation grossly intact to light touch, except decreased LLE bellow mid thigh. Assessment: []64 yom wound I and D Plan: []Monitor VS, Neurochecks C spine XR and CT revealed anterior hardware failure, good placement of posterior hardware. DC planning Awaiting PICC line Abx per ID. Follow up with Dr Mcdonnell in [place]. Appreciate IM, ID care. Indio Lopez MD
--- NOTE | 2020-02-19 17:41 | DS ---
AMENDED REPORT TO REMOVE COSIGNER CC: LEW Gomez, [place]; Dr. Mcdonnell, [facility], Neurosurgery * DISCHARGE SUMMARY: DATE OF ADMISSION: 02/16/20 DATE OF DISCHARGE: 02/19/20 PRIMARY CARE PROVIDER: LEW Gomez PRINCIPAL DISCHARGE DIAGNOSES: 1. Wound dehiscence. 2. Wound infection. SECONDARY DISCHARGE DIAGNOSES: 1. Chronic pain syndrome. 2. Hypertension. DISCHARGE MEDICATIONS: 1. Vancomycin 1.25 g IV q.12 for 53 more days. 2. Hydrocodone/acetaminophen 10/325 one tab 4 times daily p.r.n. pain. 3. Hydrochlorothiazide 25 mg daily. 4. Lisinopril 20 mg daily. 5. Docusate 100 mg t.i.d. 6. Verapamil 240 mg daily. 7. Gabapentin 1200 mg t.i.d. PHYSICAL EXAMINATION: Temperature 97.9, heart rate 81, respiratory rate 16, pulse ox 95% on room air, blood pressure 144/76. General: Alert, well appearing man, in no distress, resting comfortably. He is also seen ambulating around the unit. Neck: He has a [place] J collar in place. The incision is dressed without drainage or surrounding erythema. The drains have been removed. Chest: Regular rate and rhythm with no murmurs. Lungs are clear bilaterally. Abdomen is soft, nontender, nondistended. No guarding or rebound. Extremities: No edema, rashes, or ulcers. Neurologic: His upper extremity strength is 5/5 bilaterally. His right lower extremity strength is 5/ 5. His left lower extremity strength is 3/5. CONSULTATIONS DURING THIS ADMISSION: Dr. Lopez of Neurosurgery and Clara Muro NP, of Infectious Diseases. HOSPITAL COURSE BY PROBLEM: 1. Cervical wound dehiscence. Mr. Sinha had his initial surgery on 01/19/[address] 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 His noted wound dehiscence and brought him to the emergency department. He was taken to the OR that evening with Dr. Lopez. Cultures were obtained and the wound was repaired. He had drains in place with minimal output. The drains were removed on 02/18/20. The etiology of the dehiscence was thought to be infectious and the cultures are currently reported as "normal angela." We have asked them to specify these cultures; however, by verbal report, the micro lab reports that they were Staph hominis, so based on Infectious Diseases' recommendation, Mr. Sinha received a PICC line and will receive a total of 8 weeks of IV vancomycin. He will follow up with Infectious Diseases in the office and he is instructed to follow up with Dr. Mcdonnell of Neurosurgery as well. 2. Hypertension. Continue home antihypertensives. These were not adjusted during this admission. 3. Chronic pain syndrome. Continue home analgesia. This also was not adjusted during this admission. CONDITION AT THE TIME OF DISCHARGE: Stable. DISPOSITION: Mr. Sinha is being discharged to home with a PICC line for IV antibiotics for 8 weeks. FOLLOWUP: He will follow up with his PCP, Infectious Diseases, and Neurosurgery. Case Management has arranged infusion services and he will have weekly labs including a CBC, CMP, CRP, and vanc trough. [id number]/[facility] #: [id number] JAKE
[2020-02-20] MEDS ORDERED: Vancomycin Trough Check NOTE FOLLOW UP ONE (06:00)
== END 2020-02-19 19:20 | disposition home health service (06) | DRG 813 ==
LOC: ED 15:17 → OR 18:56 → SSU 23:02
PROVIDERS: ADMIT Neurological Surgery; ATTEND Internal Medicine
PROC: 0W9 Anatomical Regions, General, Drainage (ICD-10-PCS; principal; 2020-02-16 18:45)
PROC: 05HY33Z Insertion of Infusion Device into Upper Vein, Percutaneous Approach (ICD-10-PCS; 2020-02-19)
DX: T81.31XA Disruption of external operation (surgical) wound, not elsewhere classified, initial encounter (principal); E87.1 Hypo-osmolality and hyponatremia; T81.42XA Infection following a procedure, deep incisional surgical site, initial encounter; I10 Essential (primary) hypertension; K58.9 Irritable bowel syndrome, unspecified; N40.0 Benign prostatic hyperplasia without lower urinary tract symptoms; M19.90 Unspecified osteoarthritis, unspecified site; D64.9 Anemia, unspecified; B95.7 Other staphylococcus as the cause of diseases classified elsewhere; E87.6 Hypokalemia; M21.372 Foot drop, left foot; M54.2 Cervicalgia; L08.9 Local infection of the skin and subcutaneous tissue, unspecified; T14.8XXA Other injury of unspecified body region, initial encounter; R20.0 Anesthesia of skin; M54.16 Radiculopathy, lumbar region; M54.12 Radiculopathy, cervical region; G89.4 Chronic pain syndrome; Z72.0 Tobacco use; Z87.442 Personal history of urinary calculi; Z98.1 Arthrodesis status; Z91.011 Allergy to milk products; Z88.8 Allergy status to other drugs, medicaments and biological substances; Z91.018 Allergy to other foods; Z82.3 Family history of stroke; Z80.1 Family history of malignant neoplasm of trachea, bronchus and lung; Z80.0 Family history of malignant neoplasm of digestive organs; Z80.8 Family history of malignant neoplasm of other organs or systems; Z79.899 Other long term (current) drug therapy
CPT/HCPCS: 36415; 72040; 72125; 80048; 80053; 80202; 85025; 85610; 85730; 86140; 87040; 87070; 87073; 87077; 87186; 87205; 99285; A9270-GY; C1751; J0330; J0692; J1100; J1170; J2250; J2405; J2704; J3010; J3370; J3480